=== PATIENT | male | born 1985 | race Caucasian/White ===

== ENCOUNTER 2016-09-07 00:03 | Emergency (ER) | payer OTHER ==
[2016-09-07 00:12] VITALS: TEMP 97.9
[2016-09-07] MEDS ORDERED: SODIUM CHLORIDE 0.9% 1,000 ML IV STA (00:20)
[2016-09-07] MEDS ORDERED: NALOXONE 0.4 MG/ML 1 ML VIAL IV STA (00:20)
--- NOTE | 2016-09-07 00:33 | ED ---
Overdose HPI - General Chief Complaint: Overdose Stated Complaint: Passed out/Used Heroin Time Seen by Provider: 09/07/16 00:17 Source: patient, RN notes reviewed Mode of arrival: wheelchair - History of Present Illness Initial Comments: 31-year-old male presents to the emergency department with a chief complaint of heroin overdose. The patient states that he used heroin today. Patient states that his friend told him that he passed out after this and she states to me and that they did CPR. The friend is not currently here. Patient states he is on Suboxone. Patient states he has not used heroin in a very long time. Patient states that this type does feel better sleepy. Patient denies any pain. Patient does admit to alcohol use tonight as well.Patient denies any recent fever, chills, shortness of breath, chest pain, back pain, abdominal pain, nausea vomiting, numbness or tingling, dysuria or hematuria, constipation or diarrhea, headaches or visual changes, or any other current symptoms. - Related Data Home Medications Medication Instructions Recorded Confirmed PARoxetine HCL [Paxil] 30 mg PO DAILY 07/11/15 08/03/15 B4 (Fat Burner) 1 tab PO DAILY 08/03/15 08/03/15 Previous Rx's Medication Instructions Recorded Nicotine 21Mg/24Hr Patch [Habitrol] 1 each TRANSDERM DAILY #30 patch 08/03/15 Allergies Allergy/AdvReac Type Severity Reaction Status Date / Time No Known Allergies Allergy Verified 09/07/16 00:12 Review of Systems ROS Statement: Those systems with pertinent positive or pertinent negative responses have been documented in the HPI. ROS Other: All systems not noted in ROS Statement are negative. Past Medical History Additional Past Medical History / Comment(s): hypoglycemia History of Any Multi-Drug Resistant Organisms: None Reported Additional Past Surgical History / Comment(s): LEFT WRIST, LEFT FOOT Past Psychological History: Anxiety, Depression Smoking Status: Current every day smoker Past Alcohol Use History: Occasional Past Drug Use History: Heroin - Past Family History Father Family Medical History: Hypertension Mother Family Medical History: No Reported History General Exam General appearance: alert, appears intoxicated Head exam: Present: atraumatic, normocephalic, normal inspection Eye exam: Present: normal appearance, PERRL, EOMI. Absent: scleral icterus, conjunctival injection, periorbital swelling ENT exam: Present: normal exam, mucous membranes moist Neck exam: Present: normal inspection. Absent: tenderness, meningismus, lymphadenopathy Respiratory exam: Present: normal lung sounds bilaterally. Absent: respiratory distress, wheezes, rales, rhonchi, stridor Cardiovascular Exam: Present: regular rate, normal rhythm, normal heart sounds. Absent: systolic murmur, diastolic murmur, rubs, gallop, clicks Neurological exam: Present: alert, oriented X3 Psychiatric exam: Present: normal affect, normal mood Skin exam: Present: warm, dry, intact, normal color. Absent: rash Course Vital Signs 09/07/16 09/07/16 00:08 01:56 Temperature 97.9 F Pulse Rate 88 73 Respiratory 18 16 Rate Blood Pressure 119/69 99/53 O2 Sat by Pulse 95 97 Oximetry Medical Decision Making - Medical Decision Making 30-year-old male presents emergency Department chief complaint of overdose. This time patient is reexamined and his and oriented in the room. This time patient will be discharged home. We discussed care and follow-up return parameters. We discussed all patient's questions. He stated he understood and he is in agreement with plan. He will be discharged home. - Lab Data Result diagrams: 09/07/16 00:40 09/07/16 00:40 Lab Results 09/07/16 09/07/16 Range/Units 00:40 00:40 WBC 9.4 (3.8-10.6) k/uL RBC 4.88 (4.30-5.90) m/uL Hgb 14.0 (13.0-17.5) gm/dL Hct 43.0 (39.0-53.0) % MCV 88.1 (80.0-100.0) fL MCH 28.7 (25.0-35.0) pg MCHC 32.6 (31.0-37.0) g/dL RDW 12.7 (11.5-15.5) % Plt Count 261 (150-450) k/uL Neutrophils % 53 % Lymphocytes % 38 % Monocytes % 5 % Eosinophils % 2 % Basophils % 0 % Neutrophils # 5.0 (1.3-7.7) k/uL Lymphocytes # 3.6 (1.0-4.8) k/uL Monocytes # 0.5 (0-1.0) k/uL Eosinophils # 0.2 (0-0.7) k/uL Basophils # 0.0 (0-0.2) k/uL Sodium 144 (137-145) mmol/L Potassium 3.9 (3.5-5.1) mmol/L Chloride 104 (98-107) mmol/L Carbon Dioxide 26 (22-30) mmol/L Anion Gap 14 mmol/L BUN 14 (9-20) mg/dL Creatinine 0.90 (0.66-1.25) mg/dL Est GFR (MDRD) Af Amer >60 (>60 ml/min/1.73 sqM) Est GFR (MDRD) Non-Af >60 (>60 ml/min/1.73 sqM) Glucose 131 H (74-99) mg/dL Calcium 9.2 (8.4-10.2) mg/dL Total Bilirubin 0.2 (0.2-1.3) mg/dL AST 24 (17-59) U/L ALT 28 (21-72) U/L Alkaline Phosphatase 58 (38-126) U/L Total Protein 7.5 (6.3-8.2) g/dL Albumin 4.5 (3.5-5.0) g/dL Salicylates <1.0 mg/dL Acetaminophen <10.0 ug/mL Serum Alcohol 100 mg/dL - EKG Data -: EKG Interpreted by 09/07/16 02:39 normal sinus rhythm 86 bpm, rightward axis, no atopy, no S-T depressions or elevations, Disposition Clinical Impression: Opiate overdose Disposition: HOME SELF-CARE Condition: Stable Instructions: Narcotic Abuse (ED) Additional Instructions: Please use medication as discussed. Please follow up with family doctor if symptoms have not improved over the next two days. Please return to the emergency room if your symptoms increase or worsen or for any other concerns. Referrals: Gabby Sutton MD [Primary Care Provider] - 1-2 days Time of Disposition: 03:23
[2016-09-07 01:19] LABS: Basophils % (A) 0 %; CH 29.4; CHCM 33.5; Eosinophils # (A) 0.2 k/uL (0-0.7); Eosinophils % (A) 2 %; HDW 2.38; Luc % (Auto) 2; Lymphocytes # (A) 3.6 k/uL (1.0-4.8); Lymphocytes % (A) 38 %; MCH 28.7 pg (25.0-35.0); MCHC 32.6 g/dL (31.0-37.0); MCV 88.1 fL (80.0-100.0); Mean Platelet Volume 6.4; Monocytes # (A) 0.5 k/uL (0-1.0); Monocytes % (A) 5 %; Neutrophils % (A) 53 %; RBC 4.88 m/uL (4.30-5.90); RDW 12.7 % (11.5-15.5); WBC 9.4 k/uL (3.8-10.6); WBC (Perox) 8.86
[2016-09-07 01:42] LABS: ALT 28 U/L (21-72); AST 24 U/L (17-59); Acetaminophen <10.0 ug/mL; Alkaline Phosphatase 58 U/L (38-126); Anion Gap 14 mmol/L; Blood Urea Nitrogen 14 mg/dL (9-20); Calcium 9.2 mg/dL (8.4-10.2); Carbon Dioxide 26 mmol/L (22-30); Chloride 104 mmol/L (98-107); Glucose 131 mg/dL (74-99); Non-African American GFR(MDRD) >60 (>60 ml/min/1.73 sqM); Potassium 3.9 mmol/L (3.5-5.1); Salicylate <1.0 mg/dL; Sodium 144 mmol/L (137-145); Total Bilirubin 0.2 mg/dL (0.2-1.3); Total Protein 7.5 g/dL (6.3-8.2)
[2016-09-07 01:46] LABS: Alcohol 100 mg/dL
[2016-09-07 03:33] VITALS: BP 107/77; PULSE 76; RESP 18
== END 2016-09-07 03:33 | disposition home or self-care (01) ==
LOC: EC 00:03
DX: T40.1X1A Poisoning by heroin, accidental (unintentional), initial encounter (principal); F10.129 Alcohol abuse with intoxication, unspecified; F32.9 Major depressive disorder, single episode, unspecified; F41.9 Anxiety disorder, unspecified; F17.200 Nicotine dependence, unspecified, uncomplicated; Z79.899 Other long term (current) drug therapy
CPT/HCPCS: 36415; 93005; 80053; 85025; 80306; 83520 ×2; 80320; 99284; 96374; J2310

== ENCOUNTER 2016-09-23 18:16 | Emergency (ER) | payer OTHER ==
--- NOTE | 2016-09-23 19:13 | ED ---
General Adult HPI - General Chief complaint: Recheck/Abnormal Lab/Rx Stated complaint: general Time Seen by Provider: 09/23/16 19:00 Source: patient, RN notes reviewed Mode of arrival: ambulatory Limitations: no limitations - History of Present Illness Initial comments: 31-year-old male presents to the emergency department with a chief complaint of drug abuse. Patient uses DRUGS. He sees narcotics he has used acid he has used mushrooms. Today he states that he took mushrooms and acid. Patient texted his mom during this time and asked for help so she came and got him and brought him here. He denies any suicidal or homicidal ideation. He states he is feeling much better at this time. The patient's friend states that he is doing better than he was but he still does seem mildly out of it. Patient denies any opiate abuse.Patient denies any recent fever, chills, shortness of breath, chest pain, back pain, abdominal pain, nausea vomiting, numbness or tingling, dysuria or hematuria, constipation or diarrhea, headaches or visual changes, or any other current symptoms. - Related Data Home Medications Medication Instructions Recorded Confirmed PARoxetine HCL [Paxil] 30 mg PO DAILY 07/11/15 08/03/15 B4 (Fat Burner) 1 tab PO DAILY 08/03/15 08/03/15 Previous Rx's Medication Instructions Recorded Nicotine 21Mg/24Hr Patch [Habitrol] 1 each TRANSDERM DAILY #30 patch 08/03/15 Allergies Allergy/AdvReac Type Severity Reaction Status Date / Time No Known Allergies Allergy Verified 09/23/16 18:21 Review of Systems ROS Statement: Those systems with pertinent positive or pertinent negative responses have been documented in the HPI. ROS Other: All systems not noted in ROS Statement are negative. Past Medical History Additional Past Medical History / Comment(s): hypoglycemia History of Any Multi-Drug Resistant Organisms: None Reported Additional Past Surgical History / Comment(s): LEFT WRIST, LEFT FOOT Past Psychological History: Anxiety, Depression Smoking Status: Current every day smoker Past Alcohol Use History: Occasional Past Drug Use History: Heroin - Past Family History Father Family Medical History: Hypertension Mother Family Medical History: No Reported History General Exam Limitations: no limitations General appearance: alert, in no apparent distress ENT exam: Present: normal exam, mucous membranes moist Neck exam: Present: normal inspection. Absent: tenderness, meningismus, lymphadenopathy Respiratory exam: Present: normal lung sounds bilaterally. Absent: respiratory distress, wheezes, rales, rhonchi, stridor Cardiovascular Exam: Present: regular rate, normal rhythm, normal heart sounds. Absent: systolic murmur, diastolic murmur, rubs, gallop, clicks Extremities exam: Present: normal inspection, full ROM, normal capillary refill. Absent: tenderness, pedal edema, joint swelling, calf tenderness Neurological exam: Present: alert, oriented X3 Psychiatric exam: Absent: homicidal ideation, suicidal ideation Skin exam: Present: warm, dry, intact, normal color. Absent: rash Course Vital Signs 09/23/16 18:18 Temperature 98.1 F Pulse Rate 100 Respiratory 20 Rate Blood Pressure 135/83 O2 Sat by Pulse 99 Oximetry Medical Decision Making - Medical Decision Making 31-year-old male presents for drug abuse. This time the patient does not appear to be suffering acute medical emergencies. Patient is cleared to be evaluated by psychiatry. At this time patient was evaluated by psychiatry and they are requesting discharge home. Patient continues to have no suicidal or homicidal ideation. Does contract to safety. Patient will be discharged home. We discussed follow-up return parameters. Patient's family and reviewing plan Frankrosyn 5 answered. They will be discharged. - Lab Data Lab Results 09/23/16 Range/Units 20:14 Urine Opiates Screen Not Detected (NotDetected) Ur Oxycodone Screen Not Detected (NotDetected) Urine Methadone Screen Not Detected (NotDetected) Ur Propoxyphene Screen Not Detected (NotDetected) Ur Barbiturates Screen Detected H (NotDetected) U Tricyclic Antidepress Not Detected (NotDetected) Ur Phencyclidine Scrn Not Detected (NotDetected) Ur Amphetamines Screen Detected H (NotDetected) U Methamphetamines Scrn Not Detected (NotDetected) U Benzodiazepines Scrn Not Detected (NotDetected) Urine Cocaine Screen Not Detected (NotDetected) U Marijuana (THC) Screen Detected H (NotDetected) Disposition Clinical Impression: Drug abuse Disposition: HOME SELF-CARE Condition: Stable Instructions: Polysubstance Abuse (ED) Additional Instructions: Please use medication as discussed. Please follow up with family doctor if symptoms have not improved over the next two days. Please return to the emergency room if your symptoms increase or worsen or for any other concerns. Referrals: Gabby Sutton MD [Primary Care Provider] - 1-2 days Time of Disposition: 21:27
[2016-09-23 21:41] VITALS: BP 114/55; PULSE 77; RESP 18; TEMP 98.2
== END 2016-09-23 21:40 | disposition home or self-care (01) ==
LOC: EC 18:16
DX: F11.10 Opioid abuse, uncomplicated (principal); F32.9 Major depressive disorder, single episode, unspecified; F41.9 Anxiety disorder, unspecified; Z79.899 Other long term (current) drug therapy
CPT/HCPCS: 80306; 99284

== ENCOUNTER → 2016-09-28 | Outpatient (CLI) | payer OTHER ==
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
== END | disposition home or self-care (01) ==
LOC: RADMRIMAIN 19:39
PROVIDERS: ATTEND Nurse Practitioner Acute Care
DX: R51 Headache (principal)
CPT/HCPCS: 70551

== ENCOUNTER 2017-04-26 18:53 | Emergency (ER) | payer OTHER ==
[2017-04-26 19:01] VITALS: TEMP 98
--- NOTE | 2017-04-26 19:35 | ED ---
Psych HPI - General Chief Complaint: Psychiatric Symptoms Stated Complaint: Anxiety/Mental Health Time Seen by Provider: 04/26/17 19:03 Source: patient, RN notes reviewed Mode of arrival: ambulatory - History of Present Illness Initial Comments: This a 31-year-old male presents emergency Department chief complaint of anxiety , psychiatric history. Patient states that she has been having ongoing racing thoughts but states that they've been getting worse and states that he has a history of drug abuse and is concerned that he may use again. Patient states that he was advised by his counselor to come the emergency Department. Patient states he is not suicidal or homicidal. Patient states he just cannot complete the task some days because of his thoughts. He states sometimes he just doesn' t morning of a bed because they are so bad. Patient saw his primary care physician who gave him clonidine states is only making him tired and not helping. Patient states that he has abused multiple drugs in the past but he states he has not abused any recently. Denies any alcohol abuse. - Related Data Home Medications Medication Instructions Recorded Confirmed PARoxetine HCL [Paxil] 30 mg PO DAILY 07/11/15 04/26/17 Allergies Allergy/AdvReac Type Severity Reaction Status Date / Time No Known Allergies Allergy Verified 04/26/17 19:36 Review of Systems ROS Statement: Those systems with pertinent positive or pertinent negative responses have been documented in the HPI. ROS Other: All systems not noted in ROS Statement are negative. Past Medical History Past Medical History: No Reported History Additional Past Medical History / Comment(s): hypoglycemia, previous IVDA heroin , self medicated opiates , no use since august 2016, d/c suboxone mar 2017 History of Any Multi-Drug Resistant Organisms: None Reported Additional Past Surgical History / Comment(s): LEFT WRIST, LEFT FOOT Past Psychological History: Anxiety, Depression Smoking Status: Current every day smoker Past Alcohol Use History: Occasional Past Drug Use History: None Reported, Heroin, Opiates - Past Family History Father Family Medical History: Hypertension Mother Family Medical History: No Reported History General Exam Limitations: no limitations General appearance: alert, in no apparent distress Head exam: Present: atraumatic, normocephalic, normal inspection Eye exam: Present: normal appearance, PERRL, EOMI. Absent: scleral icterus, conjunctival injection, periorbital swelling ENT exam: Present: normal exam, normal oropharynx, mucous membranes moist Neck exam: Present: normal inspection, full ROM. Absent: tenderness, meningismus, lymphadenopathy Respiratory exam: Present: normal lung sounds bilaterally. Absent: respiratory distress, wheezes, rales, rhonchi, stridor Cardiovascular Exam: Present: regular rate, normal rhythm, normal heart sounds. Absent: systolic murmur, diastolic murmur, rubs, gallop, clicks Neurological exam: Present: alert, oriented X3, CN II-XII intact Psychiatric exam: Present: normal affect, normal mood Skin exam: Present: warm, dry, intact, normal color. Absent: rash Course Vital Signs 04/26/17 18:55 Temperature 98 F Pulse Rate 89 Respiratory 20 Rate Blood Pressure 124/81 O2 Sat by Pulse 100 Oximetry Medical Decision Making - Medical Decision Making 31-year-old male present emergency department for psychiatric evaluation. Patient has a history anxiety unable to manage symptoms at this time. Patient was evaluated by EPS and talked to the psychiatrist recommended discharge and outpatient treatment. - Lab Data Lab Results 04/26/17 Range/Units 20:02 Urine Opiates Screen Not Detected (NotDetected) Ur Oxycodone Screen Not Detected (NotDetected) Urine Methadone Screen Not Detected (NotDetected) Ur Propoxyphene Screen Not Detected (NotDetected) Ur Barbiturates Screen Not Detected (NotDetected) U Tricyclic Antidepress Not Detected (NotDetected) Ur Phencyclidine Scrn Not Detected (NotDetected) Ur Amphetamines Screen Not Detected (NotDetected) U Methamphetamines Scrn Not Detected (NotDetected) U Benzodiazepines Scrn Not Detected (NotDetected) Urine Cocaine Screen Not Detected (NotDetected) U Marijuana (THC) Screen Detected H (NotDetected) Disposition Clinical Impression: Anxiety Disposition: HOME SELF-CARE Condition: Stable Instructions: Anxiety (ED) Additional Instructions: Please return to the Emergency Department if symptoms worsen or any other concerns. Referrals: Gabby Sutton MD [Primary Care Provider] - 1-2 days Time of Disposition: 22:52
[2017-04-26 20:24] LABS: Amphetamine Screen,Urine Not Detected (NotDetected); Barbiturate Screen,Urine Not Detected (NotDetected); Benzodiazepines Screen,Urine Not Detected (NotDetected); Cocaine Screen,Urine Not Detected (NotDetected); Methadone Screen, Urine Not Detected (NotDetected); Opiate Screen,Urine Not Detected (NotDetected); Oxycodone Screen, Urine Not Detected (NotDetected); Phencyclidine Screen,Urine Not Detected (NotDetected); Tricyclic Antidepressant,Urine Not Detected (NotDetected); Urn Cannabinoid Scrn Detected (NotDetected)
[2017-04-26 23:02] VITALS: BP 135/82; PULSE 77; RESP 16
== END 2017-04-26 23:01 | disposition home or self-care (01) ==
LOC: EC 18:53
DX: F41.9 Anxiety disorder, unspecified (principal); F32.9 Major depressive disorder, single episode, unspecified; F17.200 Nicotine dependence, unspecified, uncomplicated; Z79.899 Other long term (current) drug therapy
CPT/HCPCS: 80306; 82075; 99284

== ENCOUNTER 2017-06-30 01:04 | Emergency (ER) | payer OTHER ==
--- NOTE | 2017-06-30 01:35 | ED ---
Psych HPI - General Chief Complaint: Psychiatric Symptoms Stated Complaint: Med reaction Time Seen by Provider: 06/30/17 01:17 Source: patient Mode of arrival: ambulatory - History of Present Illness Initial Comments: 31-year-old male patient presents to the emergency department today for complaints of racing thoughts and difficulty focusing. Patient states that he was started on Wellbutrin approximately 6 weeks ago. States that 2 weeks ago he did have an increase from 150-300 mg. He states that since then he has been having increasing difficulty focusing. States over the last 2 days he has not gotten out of bed, he has not been productive in any way, and has not been eating or drinking. He states he is unable to focus on anything and feels very anxious related to this. States that his thoughts are in a loop and he cannot think straight. He denies any suicidal or homicidal ideation. He denies any hallucinations. States that he does use marijuana occasionally but denies any other drug use. Denies any alcohol use. States that he has an appointment with his psychiatrist on the however states he doesn't think he can make it until then. He has been seeing a counselor, she urged him to come here if his symptoms worsened. It is otherwise he is feeling well. Patient denies any recent rash, fever, chills, shortness breath, chest pain, abdominal pain, nausea , vomiting, diarrhea, constipation, back pain, numbness, tingling, dizziness, weakness, hematuria, dysuria, urinary urgency, urinary frequency, headache, visual changes, or any other complaints. - Related Data Home Medications Medication Instructions Recorded Confirmed PARoxetine HCL [Paxil] 30 mg PO DAILY 07/11/15 04/26/17 Allergies Allergy/AdvReac Type Severity Reaction Status Date / Time No Known Allergies Allergy Verified 04/26/17 19:36 Review of Systems ROS Statement: Those systems with pertinent positive or pertinent negative responses have been documented in the HPI. ROS Other: All systems not noted in ROS Statement are negative. Past Medical History Past Medical History: No Reported History Additional Past Medical History / Comment(s): hypoglycemia, previous IVDA heroin , self medicated opiates , no use since august 2016, d/c suboxone mar 2017 History of Any Multi-Drug Resistant Organisms: None Reported Past Surgical History: Orthopedic Surgery Additional Past Surgical History / Comment(s): LEFT WRIST, LEFT FOOT Past Psychological History: Anxiety, Depression Smoking Status: Current every day smoker Past Alcohol Use History: None Reported Past Drug Use History: None Reported, Marijuana - Past Family History Father Family Medical History: Hypertension Mother Family Medical History: No Reported History General Exam Limitations: no limitations General appearance: alert, in no apparent distress, other (This is a well- developed, well-nourished adult male patient in no acute distress. Vital signs upon presentation are temperature 97.0F, pulse 97, respirations 16, blood pressure 129/83, pulse ox 99% on room air.) Eye exam: Present: normal appearance, PERRL, EOMI. Absent: scleral icterus, conjunctival injection, periorbital swelling ENT exam: Present: normal exam, normal oropharynx, mucous membranes moist Respiratory exam: Present: normal lung sounds bilaterally. Absent: respiratory distress, wheezes, rales, rhonchi, stridor Cardiovascular Exam: Present: regular rate, normal rhythm, normal heart sounds. Absent: systolic murmur, diastolic murmur, rubs, gallop, clicks Neurological exam: Present: alert, oriented X3, CN II-XII intact Psychiatric exam: Present: normal affect, normal mood, anxious Skin exam: Present: warm, dry, intact, normal color. Absent: rash Course Vital Signs 06/30/17 06/30/17 01:07 03:37 Temperature 97.0 F L 99.0 F Pulse Rate 97 93 Respiratory 16 18 Rate Blood Pressure 129/83 117/78 O2 Sat by Pulse 99 95 Oximetry Medical Decision Making - Medical Decision Making 31-year-old male patient presented to the emergency department today for complaints of racing thoughts and feeling unwell since increasing his dosage of Wellbutrin 2 weeks ago. Physical examination is unremarkable. He denied any physical symptoms. He was cleared medically and evaluated by emergency psychiatric services. The EPS nurse did speak to the psychiatrist on-call who recommended either decreasing dosage or completely stopping the Wellbutrin. He also recommended increase of the Paxil 20 mg. Did discuss these changes with the patient. He agrees with this plan. States that he does have enough Paxil to increase in dosage to 20mg until he follows up with a psychiatrist. He is instructed to follow-up as soon as possible. He is educated regarding switching his medications and instructed to be alert for any increase in suicidal ideation or depression. Instructed to return here immediately for any new, worsening, or concerning symptoms. He verbalizes understanding and agrees with this plan. - Lab Data Lab Results 06/30/17 Range/Units 01:48 Urine Opiates Screen Not Detected (NotDetected) Ur Oxycodone Screen Not Detected (NotDetected) Urine Methadone Screen Not Detected (NotDetected) Ur Propoxyphene Screen Not Detected (NotDetected) Ur Barbiturates Screen Not Detected (NotDetected) U Tricyclic Antidepress Not Detected (NotDetected) Ur Phencyclidine Scrn Not Detected (NotDetected) Ur Amphetamines Screen Not Detected (NotDetected) U Methamphetamines Scrn Not Detected (NotDetected) U Benzodiazepines Scrn Detected H (NotDetected) Urine Cocaine Screen Not Detected (NotDetected) U Marijuana (THC) Screen Detected H (NotDetected) Disposition Clinical Impression: Medication reaction Disposition: HOME SELF-CARE Condition: Good Additional Instructions: Recommendation from psychiatrist is to decrease or stop her Wellbutrin. Increase Paxil to 20 mg daily. Be alert for suicidal thoughts, behaviors, or increase in depression. Follow-up with your psychiatrist as soon as possible. Return here immediately for any new, worsening, or concerning symptoms. Referrals: Gabby Sutton MD [Primary Care Provider] - 1-2 days Time of Disposition: 03:34
[2017-06-30 02:20] LABS: Amphetamine Screen,Urine Not Detected (NotDetected); Barbiturate Screen,Urine Not Detected (NotDetected); Benzodiazepines Screen,Urine Detected (NotDetected); Cocaine Screen,Urine Not Detected (NotDetected); Methadone Screen, Urine Not Detected (NotDetected); Opiate Screen,Urine Not Detected (NotDetected); Oxycodone Screen, Urine Not Detected (NotDetected); Phencyclidine Screen,Urine Not Detected (NotDetected); Tricyclic Antidepressant,Urine Not Detected (NotDetected); Urn Cannabinoid Scrn Detected (NotDetected)
[2017-06-30 03:41] VITALS: BP 117/78; PULSE 93; RESP 18; TEMP 99
== END 2017-06-30 03:41 | disposition home or self-care (01) ==
LOC: EC 01:04
DX: F41.9 Anxiety disorder, unspecified (principal); T43.295A Adverse effect of other antidepressants, initial encounter; F17.200 Nicotine dependence, unspecified, uncomplicated; Z79.899 Other long term (current) drug therapy
CPT/HCPCS: 80306; 82075; 99284

== ENCOUNTER 2017-07-30 18:05 | Emergency (ER) | payer OTHER ==
[2017-07-30 18:21] VITALS: BP 117/63; PULSE 82; RESP 16; TEMP 98.5
--- NOTE | 2017-07-30 18:47 | ED ---
General Adult HPI - General Chief complaint: Allergic Reaction Stated complaint: POSS ALLERGIC REACTION, NEW MED Time Seen by Provider: 07/30/17 18:30 Source: patient, RN notes reviewed Mode of arrival: ambulatory Limitations: no limitations - History of Present Illness Initial comments: Patient 32-year-old male who presents emergency room today with a chief complaint possible ALLERGIC reaction. He states that yesterday he noticed some hives. He states today he had some hives again and they have gone away. She is not taking any medication. No Benadryl or Pepcid. He states that he started her medication of Lexapro 11 days ago. He did take this dose this morning as well. States he talked to the physician office a prescribed and they advised him to discontinue this time. He states that the hives are gone away were present when he was at work earlier today. Patient denies any complaints or symptoms at this time. Patient denies any recent fever, chills, shortness of breath, chest pain, back pain, abdominal pain, nausea or vomiting, numbness or tingling, headaches or visual changes, or any other complaints. - Related Data Home Medications Medication Instructions Recorded Confirmed PARoxetine HCL [Paxil] 30 mg PO DAILY 07/11/15 04/26/17 Allergies Allergy/AdvReac Type Severity Reaction Status Date / Time No Known Allergies Allergy Verified 04/26/17 19:36 Review of Systems ROS Statement: Those systems with pertinent positive or pertinent negative responses have been documented in the HPI. ROS Other: All systems not noted in ROS Statement are negative. Past Medical History Past Medical History: No Reported History Additional Past Medical History / Comment(s): hypoglycemia, previous IVDA heroin , self medicated opiates , no use since august 2016, d/c suboxone mar 2017 History of Any Multi-Drug Resistant Organisms: None Reported Past Surgical History: Orthopedic Surgery Additional Past Surgical History / Comment(s): LEFT WRIST, LEFT FOOT Past Psychological History: Anxiety, Depression Smoking Status: Current every day smoker Past Alcohol Use History: None Reported Past Drug Use History: None Reported, Marijuana - Past Family History Father Family Medical History: Hypertension Mother Family Medical History: No Reported History General Exam - General Exam Comments Initial Comments: General: The patient is awake and alert, in no distress, and does not appear acutely ill. Eye: Pupils are equal, round and reactive to light, extra-ocular movements are intact. No nystagmus. There is normal conjunctiva bilaterally. No signs of icterus. Ears, nose, mouth and throat: There are moist mucous membranes and no oral lesions. Neck: The neck is supple, there is no tenderness or JVD. Cardiovascular: There is a regular rate and rhythm. No murmur, rub or gallop is appreciated. Respiratory: Lungs are clear to auscultation, respirations are non-labored, breath sounds are equal. No wheezes, stridor, rales, or rhonchi. Musculoskeletal: Normal ROM, no tenderness. Strength 5/5. Sensation intact. Pulses equal bilaterally 2+. Neurological: A&O x 3. CN II-XII intact, There are no obvious motor or sensory deficits. Coordination appears grossly intact. Speech is normal. Skin: Skin is warm and dry and no rashes or lesions are noted. Psychiatric: Cooperative, appropriate mood & affect, normal judgment. Limitations: no limitations Course Vital Signs 07/30/17 18:17 Temperature 98.5 F Pulse Rate 82 Respiratory 16 Rate Blood Pressure 117/63 O2 Sat by Pulse 99 Oximetry Medical Decision Making - Medical Decision Making Patient's vital stable here the emergency room. He denies any complaints at this time. He states the rash was red raised and itchy. He states seemed to be hives versus scar way at this time has no complaints currently. Denied any other symptoms or complaints. At this time advised patient that his symptoms return use Benadryl but to talk with the physician tomorrow about use of the Lexapro heart taking. Advised patient that he should return to the emergency room symptoms increase or worsen. Disposition Clinical Impression: Adverse drug effect Disposition: HOME SELF-CARE Condition: Good Instructions: Anaphylaxis (ED) Additional Instructions: Please use medication as discussed. Please follow-up with family doctor in the next 2 days of symptoms have not improved. Please return to emergency room if the symptoms increase or worsen or for any other concerns. Referrals: Gabby Sutton MD [Primary Care Provider] - 1-2 days Time of Disposition: 18:46
== END 2017-07-30 19:07 | disposition home or self-care (01) ==
LOC: EC 18:05
DX: L29.9 Pruritus, unspecified (principal); T50.905A Adverse effect of unspecified drugs, medicaments and biological substances, initial encounter; F41.9 Anxiety disorder, unspecified; F32.9 Major depressive disorder, single episode, unspecified; F17.200 Nicotine dependence, unspecified, uncomplicated; Z79.899 Other long term (current) drug therapy
CPT/HCPCS: 99283

== ENCOUNTER → 2017-10-02 | Outpatient (CLI) | payer OTHER ==
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
== END | disposition home or self-care (01) ==
LOC: SLEEP 15:46
PROVIDERS: ATTEND Internal Medicine Critical Care Medicine
DX: R53.83 Other fatigue (principal); S06.9X0A Unspecified intracranial injury without loss of consciousness, initial encounter; R51 Headache; F41.9 Anxiety disorder, unspecified; F32.9 Major depressive disorder, single episode, unspecified; F17.210 Nicotine dependence, cigarettes, uncomplicated; Z91.09 Other allergy status, other than to drugs and biological substances; Z79.899 Other long term (current) drug therapy
CPT/HCPCS: 99211

== ENCOUNTER 2018-01-14 10:57 | Emergency (ER) | payer OTHER ==
[2018-01-14 11:07] VITALS: TEMP 98.5
[2018-01-14 11:55] LABS: Appearance,Urine Clear (Clear); Bilirubin,Urine Negative (Negative); Blood,Urine Negative (Negative); Color,Urine Yellow; Glucose,Urine (UA) Negative (Negative); Ketones,Urine Negative (Negative); Leukocyte Esterase,Urine Negative (Negative); Nitrite,Urine Negative (Negative); PH, Urine 7.5 (5.0-8.0); Protein,Urine Negative (Negative); Specific Gravity,Urine 1.013 (1.001-1.035); Urobilinogen,Urine <2.0 mg/dL (<2.0)
--- NOTE | 2018-01-14 13:42 | US ---
EXAMINATION TYPE: US scrotum with doppler. Grayscale and color Doppler Duplex imaging performed of t hawk scrotum. DATE OF EXAM: 01/14/2018 COMPARISON: NONE CLINICAL HISTORY: Pain. Bilateral testicular pain, painful bloody ejaculation, urinary urgency, diffi culty urinating EXAM MEASUREMENTS: TESTICLES: Right Testicle: 5.0 x 2.1 x 2.9 cm Left Testicle: 4.5 x 2.5 x 3.0 cm EPIDIDYMIS HEAD: Right Epididymis: 1.0 x 0.9 x 1.4 cm Left Epididymis: 0.9 x 1.2 x 1.3 cm Doppler performed to assess for testicular vascularity; good bilateral color flow and waveforms are s een. Presence of hydroceles: small right 3.3cm Presence of varicoceles: no Comparison images towards end of study show symmetric blood flow to both testicles. IMPRESSION: No suspicious increased or diminished blood flow to either testicle.
[2018-01-14 13:50] VITALS: BP 118/74; PULSE 85; RESP 17
[2018-01-14] MEDS ORDERED: cefTRIAXone 250 MG VIAL IM STA (14:32)
[2018-01-14] MEDS ORDERED: AZITHROMYCIN 500 MG TAB PO STA (14:32)
--- NOTE | 2018-01-14 14:33 | ED ---
General Adult HPI - General Chief complaint: Recheck/Abnormal Lab/Rx Stated complaint: Blood in Urine Time Seen by Provider: 01/14/18 11:11 Source: patient, RN notes reviewed, old records reviewed Mode of arrival: ambulatory Limitations: no limitations - History of Present Illness Initial comments: This is a 32-year-old male coming in for evaluation and dysuria diarrhea hematospermia. Patient has symptoms on and off for a few weeks now. Denies any fevers. No swelling no rashes no gross. No new sexual activity or contacts. - Related Data Home Medications Medication Instructions Recorded Confirmed ALPRAZolam [Xanax] 0.25 mg PO DAILY PRN 07/30/17 01/14/18 Dextroamphetamine/Amphetamine 40 mg PO QAM 01/14/18 01/14/18 [Adderall Xr] [place]-3 Fatty Acids [[place]-3] 1,000 mg PO DAILY 01/14/18 01/14/18 PARoxetine [Paxil] 20 mg PO DAILY 01/14/18 01/14/18 Previous Rx's Medication Instructions Recorded Ciprofloxacin HCl [Cipro] 500 mg PO Q12HR #28 tablet 01/14/18 Allergies Allergy/AdvReac Type Severity Reaction Status Date / Time escitalopram [From Lexapro] Allergy Rash/Hives Verified 01/14/18 11:32 Review of Systems ROS Statement: Those systems with pertinent positive or pertinent negative responses have been documented in the HPI. ROS Other: All systems not noted in ROS Statement are negative. Past Medical History Past Medical History: No Reported History Additional Past Medical History / Comment(s): hypoglycemia, previous IVDA heroin , self medicated opiates , no use since august 2016, d/c suboxone mar 2017 History of Any Multi-Drug Resistant Organisms: None Reported Past Surgical History: Orthopedic Surgery Additional Past Surgical History / Comment(s): LEFT WRIST, LEFT FOOT Past Psychological History: Anxiety, Depression Smoking Status: Current every day smoker Past Alcohol Use History: None Reported Past Drug Use History: Marijuana - Past Family History Father Family Medical History: Hypertension Mother Family Medical History: No Reported History General Exam Limitations: no limitations General appearance: alert, in no apparent distress Head exam: Present: atraumatic, normocephalic, normal inspection Eye exam: Present: normal appearance, PERRL, EOMI. Absent: scleral icterus, conjunctival injection, periorbital swelling ENT exam: Present: normal exam, mucous membranes moist Neck exam: Present: normal inspection. Absent: tenderness, meningismus, lymphadenopathy Respiratory exam: Present: normal lung sounds bilaterally. Absent: respiratory distress, wheezes, rales, rhonchi, stridor Cardiovascular Exam: Present: regular rate, normal rhythm, normal heart sounds. Absent: systolic murmur, diastolic murmur, rubs, gallop, clicks GI/Abdominal exam: Present: soft, normal bowel sounds. Absent: distended, tenderness, guarding, rebound, rigid Extremities exam: Present: normal inspection, full ROM, normal capillary refill. Absent: tenderness, pedal edema, joint swelling, calf tenderness Back exam: Present: normal inspection Neurological exam: Present: alert, oriented X3, CN II-XII intact Psychiatric exam: Present: normal affect, normal mood Skin exam: Present: warm, dry, intact, normal color. Absent: rash Course Vital Signs 01/14/18 01/14/18 01/14/18 11:00 12:17 13:50 Temperature 98.5 F Pulse Rate 104 H 87 85 Respiratory 18 16 17 Rate Blood Pressure 120/79 121/75 118/74 O2 Sat by Pulse 100 99 100 Oximetry Medical Decision Making - Medical Decision Making 32 male the ER for evaluation. Patient has likely prostatitis, urine otherwise and ultrasound are negative. Patient can be discharged home - Lab Data Lab Results 01/14/18 01/14/18 Range/Units 11:28 11:28 Urine Color Yellow Urine Appearance Clear (Clear) Urine pH 7.5 (5.0-8.0) Ur Specific [place] 1.013 (1.001-1.035) Urine Protein Negative (Negative) Urine Glucose (UA) Negative (Negative) Urine Ketones Negative (Negative) Urine Blood Negative (Negative) Urine Nitrite Negative (Negative) Urine Bilirubin Negative (Negative) Urine Urobilinogen <2.0 (<2.0) mg/dL Ur Leukocyte Esterase Negative (Negative) Chlamydia Source Urine Chlamydia DNA (PCR) Negative (Neg,Equiv) N. gonorrhoeae Source Urine N.gonorrhoeae DNA Probe Negative (Neg,Equiv) - Radiology Data Radiology results: report reviewed (Ultrasound scrotum negative), image reviewed Disposition Clinical Impression: Prostatitis, Hematospermia Disposition: HOME SELF-CARE Condition: Good Instructions: Prostatitis (ED) Prescriptions: Ciprofloxacin HCl [Cipro] 500 mg PO Q12HR #28 tablet Is patient prescribed a controlled substance at d/c from ED?: No Referrals: Gabby Sutton MD [Primary Care Provider] - 1-2 days
[2018-01-15 15:37] LABS: C. trachomatis,PCR Negative (Neg,Equiv); Chlamydia trachomatis Source Urine; N. gonorrhoeae,PCR Negative (Neg,Equiv); Neisseria Source Urine
== END 2018-01-14 14:51 | disposition home or self-care (01) ==
LOC: EC 10:57
DX: N41.9 Inflammatory disease of prostate, unspecified (principal); R36.1 Hematospermia; F41.9 Anxiety disorder, unspecified; F32.9 Major depressive disorder, single episode, unspecified; F17.200 Nicotine dependence, unspecified, uncomplicated; Z98.890 Other specified postprocedural states; Z79.899 Other long term (current) drug therapy; Z88.8 Allergy status to other drugs, medicaments and biological substances
CPT/HCPCS: 76870; 81003; 87086; 87491; 87591; 93975; 99284

== ENCOUNTER 2018-11-21 19:21 | Observation (INO) | payer OTHER ==
--- NOTE | 2018-11-21 20:12 | ED ---
General Adult HPI - General Chief complaint: Abdominal Pain Stated complaint: Abd pain, dizziness Time Seen by Provider: 11/21/18 19:48 Source: patient, RN notes reviewed Mode of arrival: ambulatory Limitations: no limitations - History of Present Illness Initial comments: This is a 33-year-old male with a strong family history of aortic aneurysms and his dad and other family members who've just complains of dizziness which happens when he gets up from a bending over position but also left flank pain recently. He denies any fevers chills nausea vomiting sweats he does say he's had weight loss recently from 205 180 pounds last several months. He states this is similar to when his dad and other family members presented. He denies any other symptoms however no cough fevers chills nausea vomiting sweats difficulty with urination or bowel movements. He does admit she is a smoker. He is concerned about the aorta. No other modifying factors - Related Data Home Medications Medication Instructions Recorded Confirmed ALPRAZolam [Xanax] 0.25 mg PO DAILY PRN 07/30/17 11/21/18 Dextroamphetamine/Amphetamine 40 mg PO QAM 01/14/18 11/21/18 [Adderall Xr] PARoxetine [Paxil] 20 mg PO DAILY 01/14/18 11/21/18 Allergies Allergy/AdvReac Type Severity Reaction Status Date / Time escitalopram [From Lexapro] Allergy Rash/Hives Verified 11/21/18 19:54 Review of Systems ROS Statement: Those systems with pertinent positive or pertinent negative responses have been documented in the HPI. ROS Other: All systems not noted in ROS Statement are negative. Past Medical History Past Medical History: No Reported History Additional Past Medical History / Comment(s): hypoglycemia, previous IVDA heroin, self medicated opiates , no use since august 2016, d/c suboxone mar 2017 History of Any Multi-Drug Resistant Organisms: None Reported Past Surgical History: Orthopedic Surgery Additional Past Surgical History / Comment(s): LEFT WRIST, LEFT FOOT Past Psychological History: Anxiety, Depression Smoking Status: Current every day smoker Past Alcohol Use History: None Reported Past Drug Use History: Marijuana - Past Family History Father Family Medical History: Hypertension Mother Family Medical History: No Reported History General Exam - General Exam Comments Initial Comments: This is a well-developed with sciatica. Male who is awake alert oriented 3 and anxious Limitations: no limitations General appearance: alert, anxious Head exam: Present: atraumatic, normocephalic, normal inspection Eye exam: Present: normal appearance, PERRL, EOMI. Absent: scleral icterus, conjunctival injection, periorbital swelling ENT exam: Present: normal exam, mucous membranes moist Neck exam: Present: normal inspection, full ROM, other (Stridor JVD or bruits). Absent: tenderness, meningismus, lymphadenopathy Respiratory exam: Present: normal lung sounds bilaterally. Absent: respiratory distress, wheezes, rales, rhonchi, stridor Cardiovascular Exam: Present: regular rate, normal rhythm, normal heart sounds. Absent: systolic murmur, diastolic murmur, rubs, gallop, clicks GI/Abdominal exam: Present: soft, normal bowel sounds. Absent: distended, tenderness, guarding, rebound, rigid, bruit, pulsatile mass Rectal exam: Present: deferred Extremities exam: Present: normal inspection, full ROM, normal capillary refill. Absent: tenderness, pedal edema, joint swelling, calf tenderness Back exam: Present: normal inspection Neurological exam: Present: alert, oriented X3, CN II-XII intact Psychiatric exam: Present: normal affect, normal mood Skin exam: Present: warm, dry, intact, normal color. Absent: rash Course Vital Signs 11/21/18 19:42 Temperature 98.4 F Pulse Rate 83 Respiratory 20 Rate Blood Pressure 133/74 O2 Sat by Pulse 99 Oximetry EKG Findings - EKG Results: EKG: interpreted by ERMD (Sinus rhythm 82. Interval 176 QRS duration 102 QT since QTC 350/[address] T-wave configuration inferior leads this is compared with EKG dated 11/8616 which does show changes which did show evidence of right axis deviation at that time.) Procedures - Smoking Cessation Time Spent Discussing Smoking Cessation w/Patient (Minutes): 3 Patient Acknowledges Need for Cessation: Yes Medical Decision Making - Medical Decision Making I did discuss the findings with the patient and the findings of EKG changes and the atypical chest pain he will be admitted for evaluation case is discussed with Dr. Valentino's nurse practitioner Natalie - Lab Data Result diagrams: 11/21/18 20:05 11/21/18 20:05 Lab Results 08/01/19 08/01/19 08/01/19 Range/Units 20:05 20:05 20:05 WBC 7.6 (3.8-10.6) k/uL RBC 5.15 (4.30-5.90) m/uL Hgb 15.3 (13.0-17.5) gm/dL Hct 46.7 (39.0-53.0) % MCV 90.7 (80.0-100.0) fL MCH 29.6 (25.0-35.0) pg MCHC 32.7 (31.0-37.0) g/dL RDW 12.5 (11.5-15.5) % Plt Count 264 (150-450) k/uL Neutrophils % 69 % Lymphocytes % 22 % Monocytes % 6 % Eosinophils % 2 % Basophils % 0 % Neutrophils # 5.2 (1.3-7.7) k/uL Lymphocytes # 1.6 (1.0-4.8) k/uL Monocytes # 0.5 (0-1.0) k/uL Eosinophils # 0.2 (0-0.7) k/uL Basophils # 0.0 (0-0.2) k/uL D-Dimer <0.17 (<0.60) mg/L FEU Sodium 141 (137-145) mmol/L Potassium 4.3 (3.5-5.1) mmol/L Chloride 103 (98-107) mmol/L Carbon Dioxide 29 (22-30) mmol/L Anion Gap 9 mmol/L BUN 18 (9-20) mg/dL Creatinine 0.97 (0.66-1.25) mg/dL Est GFR (CKD-EPI)AfAm >90 (>60 ml/min/1.73 sqM) Est GFR (CKD-EPI)NonAf >90 (>60 ml/min/1.73 sqM) Glucose 98 (74-99) mg/dL Calcium 9.5 (8.4-10.2) mg/dL Magnesium 2.4 H (1.6-2.3) mg/dL Total Bilirubin 0.2 (0.2-1.3) mg/dL AST 17 (17-59) U/L ALT 15 L (21-72) U/L Alkaline Phosphatase 52 (38-126) U/L Creatine Kinase 23 L (55-170) U/L Troponin I (0.000-0.034) ng/mL Total Protein 7.5 (6.3-8.2) g/dL Albumin 4.5 (3.5-5.0) g/dL Lipase 75 (23-300) U/L 11/21/18 Range/Units 20:05 WBC (3.8-10.6) k/uL RBC (4.30-5.90) m/uL Hgb (13.0-17.5) gm/dL Hct (39.0-53.0) % MCV (80.0-100.0) fL MCH (25.0-35.0) pg MCHC (31.0-37.0) g/dL RDW (11.5-15.5) % Plt Count (150-450) k/uL Neutrophils % % Lymphocytes % % Monocytes % % Eosinophils % % Basophils % % Neutrophils # (1.3-7.7) k/uL Lymphocytes # (1.0-4.8) k/uL Monocytes # (0-1.0) k/uL Eosinophils # (0-0.7) k/uL Basophils # (0-0.2) k/uL D-Dimer (<0.60) mg/L FEU Sodium (137-145) mmol/L Potassium (3.5-5.1) mmol/L Chloride (98-107) mmol/L Carbon Dioxide (22-30) mmol/L Anion Gap mmol/L BUN (9-20) mg/dL Creatinine (0.66-1.25) mg/dL Est GFR (CKD-EPI)AfAm (>60 ml/min/1.73 sqM) Est GFR (CKD-EPI)NonAf (>60 ml/min/1.73 sqM) Glucose (74-99) mg/dL Calcium (8.4-10.2) mg/dL Magnesium (1.6-2.3) mg/dL Total Bilirubin (0.2-1.3) mg/dL AST (17-59) U/L ALT (21-72) U/L Alkaline Phosphatase (38-126) U/L Creatine Kinase (55-170) U/L Troponin I <0.012 (0.000-0.034) ng/mL Total Protein (6.3-8.2) g/dL Albumin (3.5-5.0) g/dL Lipase (23-300) U/L - Radiology Data Radiology results: report reviewed (I did review the imaging and report no acute findings.), image reviewed Disposition Clinical Impression: Atypical chest pain, Acute electrocardiogram changes Disposition: ADMITTED IP TO THIS HOSP Condition: Stable Referrals: Veena Og MD [Primary Care Provider] - 1-2 days
[2018-11-21 20:16] LABS: Basophils % (A) 0 %; Eosinophils # (A) 0.2 k/uL (0-0.7); Eosinophils % (A) 2 %; HCT 46.7 % (39.0-53.0); HGB 15.3 gm/dL (13.0-17.5); Lymphocytes # (A) 1.6 k/uL (1.0-4.8); Lymphocytes % (A) 22 %; MCH 29.6 pg (25.0-35.0); MCHC 32.7 g/dL (31.0-37.0); MCV 90.7 fL (80.0-100.0); Mean Platelet Volume 6.5; Monocytes # (A) 0.5 k/uL (0-1.0); Monocytes % (A) 6 %; Neutrophils # (A) 5.2 k/uL (1.3-7.7); Neutrophils % (A) 69 %; Platelet Count 264 k/uL (150-450); RBC 5.15 m/uL (4.30-5.90); RDW 12.5 % (11.5-15.5); WBC 7.6 k/uL (3.8-10.6)
[2018-11-21 20:33] LABS: ALT 15 U/L (21-72); AST 17 U/L (17-59); African American GFR (CKD) >90 (>60 ml/min/1.73 sqM); Albumin 4.5 g/dL (3.5-5.0); Alkaline Phosphatase 52 U/L (38-126); Anion Gap 9 mmol/L; Blood Urea Nitrogen 18 mg/dL (9-20); Calcium 9.5 mg/dL (8.4-10.2); Carbon Dioxide 29 mmol/L (22-30); Chloride 103 mmol/L (98-107); Creatine Kinase 23 U/L (55-170); Glucose 98 mg/dL (74-99); Magnesium 2.4 mg/dL (1.6-2.3); Potassium 4.3 mmol/L (3.5-5.1); Sodium 141 mmol/L (137-145); Total Bilirubin 0.2 mg/dL (0.2-1.3); Total Protein 7.5 g/dL (6.3-8.2)
--- NOTE | 2018-11-21 20:51 | XR ---
EXAMINATION: XR chest 2V DATE AND TIME: 11/21/2018 8:22 PM CLINICAL INDICATION: PHH; cough TECHNIQUE: Departmental protocol COMPARISON: 08/03/2015 FINDINGS: The lungs are clear. The pleural spaces are negative. The cardiac silhouette is not enlarged. The remainder of the mediastinal silhouette is unremarkable. The skeletal structures and soft tissues are negative for acute findings. IMPRESSION: NO ACUTE PROCESS.
--- NOTE | 2018-11-21 20:53 | XR ---
EXAMINATION TYPE: XR KUB 2 views DATE OF EXAM: 11/21/2018 COMPARISON: NONE HISTORY: Dizziness, abdominal pain, weight loss TECHNIQUE: 2 views FINDINGS: Sliced lung bases and pleural spaces are negative. No evidence of pneumoperitoneum or pneumatosis. Negative for bowel obstruction. No acute skeletal or soft tissue findings are evident. IMPRESSION: Negative examination.
[2018-11-21] MEDS ORDERED: NITROGLYCERIN SL TABS 0.4 MG TAB SUBLINGUAL PRN (21:01)
--- NOTE | 2018-11-21 21:04 | ED ---
Medical Decision Making - Lab Data Result diagrams: 11/21/18 20:05 11/21/18 20:05 Lab Results 11/21/18 11/21/18 11/21/18 Range/Units 20:05 20:05 20:05 WBC 7.6 (3.8-10.6) k/uL RBC 5.15 (4.30-5.90) m/uL Hgb 15.3 (13.0-17.5) gm/dL Hct 46.7 (39.0-53.0) % MCV 90.7 (80.0-100.0) fL MCH 29.6 (25.0-35.0) pg MCHC 32.7 (31.0-37.0) g/dL RDW 12.5 (11.5-15.5) % Plt Count 264 (150-450) k/uL Neutrophils % 69 % Lymphocytes % 22 % Monocytes % 6 % Eosinophils % 2 % Basophils % 0 % Neutrophils # 5.2 (1.3-7.7) k/uL Lymphocytes # 1.6 (1.0-4.8) k/uL Monocytes # 0.5 (0-1.0) k/uL Eosinophils # 0.2 (0-0.7) k/uL Basophils # 0.0 (0-0.2) k/uL D-Dimer <0.17 (<0.60) mg/L FEU Sodium 141 (137-145) mmol/L Potassium 4.3 (3.5-5.1) mmol/L Chloride 103 (98-107) mmol/L Carbon Dioxide 29 (22-30) mmol/L Anion Gap 9 mmol/L BUN 18 (9-20) mg/dL Creatinine 0.97 (0.66-1.25) mg/dL Est GFR (CKD-EPI)AfAm >90 (>60 ml/min/1.73 sqM) Est GFR (CKD-EPI)NonAf >90 (>60 ml/min/1.73 sqM) Glucose 98 (74-99) mg/dL Calcium 9.5 (8.4-10.2) mg/dL Magnesium 2.4 H (1.6-2.3) mg/dL Total Bilirubin 0.2 (0.2-1.3) mg/dL AST 17 (17-59) U/L ALT 15 L (21-72) U/L Alkaline Phosphatase 52 (38-126) U/L Creatine Kinase 23 L (55-170) U/L Troponin I (0.000-0.034) ng/mL Total Protein 7.5 (6.3-8.2) g/dL Albumin 4.5 (3.5-5.0) g/dL Lipase 75 (23-300) U/L 11/21/18 Range/Units 20:05 WBC (3.8-10.6) k/uL RBC (4.30-5.90) m/uL Hgb (13.0-17.5) gm/dL Hct (39.0-53.0) % MCV (80.0-100.0) fL MCH (25.0-35.0) pg MCHC (31.0-37.0) g/dL RDW (11.5-15.5) % Plt Count (150-450) k/uL Neutrophils % % Lymphocytes % % Monocytes % % Eosinophils % % Basophils % % Neutrophils # (1.3-7.7) k/uL Lymphocytes # (1.0-4.8) k/uL Monocytes # (0-1.0) k/uL Eosinophils # (0-0.7) k/uL Basophils # (0-0.2) k/uL D-Dimer (<0.60) mg/L FEU Sodium (137-145) mmol/L Potassium (3.5-5.1) mmol/L Chloride (98-107) mmol/L Carbon Dioxide (22-30) mmol/L Anion Gap mmol/L BUN (9-20) mg/dL Creatinine (0.66-1.25) mg/dL Est GFR (CKD-EPI)AfAm (>60 ml/min/1.73 sqM) Est GFR (CKD-EPI)NonAf (>60 ml/min/1.73 sqM) Glucose (74-99) mg/dL Calcium (8.4-10.2) mg/dL Magnesium (1.6-2.3) mg/dL Total Bilirubin (0.2-1.3) mg/dL AST (17-59) U/L ALT (21-72) U/L Alkaline Phosphatase (38-126) U/L Creatine Kinase (55-170) U/L Troponin I <0.012 (0.000-0.034) ng/mL Total Protein (6.3-8.2) g/dL Albumin (3.5-5.0) g/dL Lipase (23-300) U/L Disposition Clinical Impression: Atypical chest pain, Acute electrocardiogram changes, Smoking Disposition: ADMITTED IP TO THIS HOSP Condition: Stable Referrals: Veena Og MD [Primary Care Provider] - 1-2 days
[2018-11-21] MEDS: ALPRAZolam 0.25 MG TAB PO PRN (22:53)
[2018-11-22] MEDS ORDERED: PARoxetine 20 MG TAB PO SCH (09:00)
[2018-11-22] MEDS ORDERED: Dextroamphetamine/Amphetamine [Adderall Xr] PO SCH (09:00)
[2018-11-22] MEDS ORDERED: ASPIRIN 325 MG TAB PO SCH (09:00)
--- NOTE | 2018-11-22 09:00 | US ---
EXAMINATION TYPE: US duplex aorta DATE OF EXAM: 11/22/2018 COMPARISON: NONE CLINICAL HISTORY: assess aorta. family hx of AAA, no htn, pt states having heart palpatations EXAM MEASUREMENTS: Abdominal Aorta: Proximal: 2.1 x 1.9 cm Mid: 1.8 x 2.1 cm Distal: 1.7 x 1.7 cm Bifurcation: right- 0.9 x 0.9 cm left- 0.9 x 0.9 cm No AAA visualized IMPRESSION: No sonographic evidence of abdominal aortic aneurysm and the visualized portions of the a bdominal aorta.
[2018-11-22 09:06] VITALS: RESP 16
--- NOTE | 2018-11-22 10:12 | P.CRDCN ---
History of Present Illness History of present illness: This is a pleasant 33-year-old male past medical history significant for previous heroin and opiate use and has chronic nicotine dependence. He denies history of coronary artery disease, hypertension, dyslipidemia or diabetes mellitus. We have been asked to see him in consultation for chest pain. He states for the last few months he has been experiencing light headedness when he changes positions. Specifically when he bends down to do something at work and then stands up quickly. He has never actually passed out. The light headed feeling subsides after a few seconds. This not associated with chest pain, shortness of breath, palpitations, nausea, vomiting or diaphoresis. However, yesterday he felt intermittent palpitations throughout the day. He was not dizzy or short of breath when he felt the palpitations. He describes it as it felt like his heart was stopping. He became concerned because his father and uncles have all had abdominal aortic aneurysm and felt their only symptom was dizziness. He is seen and examined resting comfortably in bed in no acute distress. He has had no dizziness since arriving at the hospital. EKG reveals sinus mechanism heart rate 82, left axis deviation and T-wave inversions in the inferior leads. These are new compared to previous EKG from 2017. Chest x-ray is negative for an acute cardiopulmonary process. Abdominal xray negative for an acute process. Abdominal ultrasound reveals no evidence of abdominal aortic aneurysm. Laboratory data reviewed, WBC 7.6, hgb 15.3, plt 264, d-dimer less than 0.17, sodium 141, potassium 4.3, creatinine 0.97, cardiac enzymes negative x3, LDL 77, TSH 3.45. He currently takes no daily cardiac medications. He does take adderall daily. At the time of my exam: CONSTITUTIONAL: Denies fever. Denies chills. EYES: Denies blurred vision. Denies vision changes. Denies eye pain. EARS, NOSE, MOUTH & THROAT: Denies headache. Denies sore throat. Denies ear pain. CARDIOVASCULAR: Denies chest pain. Denies shortness of breath. Denies orthopnea. Denies PND. Denies palpitations. RESPIRATORY: Denies cough. GASTROINTESTINAL: Denies abdominal pain. Denies diarrhea. Denies constipation. Denies nausea. Denies vomiting. MUSCULOSKELETAL: Denies myalgias. INTEGUMENTARY: Denies pruitis. Denies rash. NEUROLOGIC: Denies numbness. Denies tingling. Denies weakness. PSYCHIATRIC: Denies anxiety. Denies depression. ENDOCRINE: Denies fatigue. Denies weight change. Denies polydipsia. Denies polyurina. GENITOURINARY: Denies burning, hematuria or urgency with micturation. HEMATOLOGIC: Denies history of anemia. Denies bleeding. Blood pressure 107/69 heart rate 57 afebrile maintaining oxygen saturation on room air GENERAL: This is a 33-year-old male in no apparent distress at the time of my examination. HEENT: Head is atraumatic, normocephalic. Pupils are equal, round. Sclerae anicteric. Conjunctivae are clear. Mucous membranes of the mouth are moist. Neck is supple. There is no jugular venous distention. No carotid bruit is heard. LUNGS: Clear to auscultation no wheezes, rales or rhonchi. No chest wall tenderness is noted on palpation or with deep breathing. HEART: Regular rate and rhythm without murmurs, rubs or gallops. S1 and S2 heard. ABDOMEN: Soft, nontender. Bowel sounds are heard. No organomegaly noted. EXTREMITIES: No evidence of peripheral edema and no calf tenderness noted. VASCULAR: Radial and dorsalis pedis pulses palpated, no evidence of clubbing. NEUROLOGIC: Patient is awake, alert and oriented x3. ASSESSMENT Positional pre-syncope Palpitations Chronic nicotine dependence Former IV drug use, ongoing marijuana use PLAN An acute coronary event has been ruled out. Ultrasound of the aorta ordered and is unremarkable. Orthostatic vital signs obtained, no evidence to suggest orthostatic hypotension. Obtain 2D echocardiogram and doppler study to assess cardiac structure and function. Perform stress echocardiogram to assess for stress induced ischemic changes or exercise induced arrhythmia. Recommend discontinuation of adderall, as this may be causing his palpitations. Smoking cessation recommended. If diagnostic testing is normal he may be discharged from a cardiac perspective. Thank you kindly for this consultation. Nurse Practitioner note has been reviewed, I agree with a documented findings and plan of care. Patient was seen and examined. 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, usually used pills self medicated opiates , no use since august 2016, d/c suboxone mar 2017 History of Any Multi-Drug Resistant Organisms: None Reported Past Surgical History: Orthopedic Surgery Additional Past Surgical History / Comment(s): LEFT WRIST, LEFT FOOT Past Anesthesia/Blood Transfusion Reactions: No Reported Reaction Past Psychological History: Anxiety, Depression Smoking Status: Current every day smoker Past Alcohol Use History: None Reported Past Drug Use History: Marijuana - Past Family History Father Family Medical History: Hypertension Mother Family Medical History: No Reported History Medications and Allergies Home Medications Medication Instructions Recorded Confirmed Type ALPRAZolam [Xanax] 0.25 mg PO TID PRN 07/30/17 11/21/18 History Dextroamphetamine/Amphetamine 40 mg PO QAM 01/14/18 11/21/18 History [Adderall Xr] PARoxetine [Paxil] 20 mg PO DAILY 01/14/18 11/21/18 History Allergies Allergy/AdvReac Type Severity Reaction Status Date / Time escitalopram [From Lexapro] Allergy Rash/Hives Verified 11/21/18 22:21 Physical Exam Vitals: Vital Signs Temp Pulse Pulse Resp BP BP Pulse Ox 11/22/18 04:00 98.3 F 57 L 18 108/73 98 11/22/18 00:00 98.2 F 77 18 118/79 100 11/21/18 21:47 98.0 F 61 18 121/72 100 11/21/18 19:42 98.4 F 83 20 133/74 99 Intake and Output 11/21/18 11/22/18 11/22/18 22:59 06:59 14:59 Other: Voiding Method Toilet Toilet # Voids 2 Weight 81.873 kg Results 11/21/18 20:05 11/21/18 20:05 Cardiac Enzymes 11/21/18 11/21/18 11/22/18 Range/Units 20:05 20:05 02:52 AST 17 (17-59) U/L Troponin I <0.012 <0.012 (0.000-0.034) ng/mL CBC 11/21/18 Range/Units 20:05 WBC 7.6 (3.8-10.6) k/uL RBC 5.15 (4.30-5.90) m/uL Hgb 15.3 (13.0-17.5) gm/dL Hct 46.7 (39.0-53.0) % Plt Count 264 (150-450) k/uL Comprehensive Metabolic Panel 11/21/18 Range/Units 20:05 Sodium 141 (137-145) mmol/L Potassium 4.3 (3.5-5.1) mmol/L Chloride 103 (98-107) mmol/L Carbon Dioxide 29 (22-30) mmol/L BUN 18 (9-20) mg/dL Creatinine 0.97 (0.66-1.25) mg/dL Glucose 98 (74-99) mg/dL Calcium 9.5 (8.4-10.2) mg/dL AST 17 (17-59) U/L ALT 15 L (21-72) U/L Alkaline Phosphatase 52 (38-126) U/L Total Protein 7.5 (6.3-8.2) g/dL Albumin 4.5 (3.5-5.0) g/dL Current Medications Generic Name Dose Route Start Last Admin Trade Name Freq PRN Reason Stop Dose Admin Alprazolam 0.25 mg 11/21/18 21:03 11/21/18 22:53 Xanax PO 0.25 mg DAILY PRN Administration Anxiety Aspirin 325 mg 11/22/18 09:00 Aspirin PO DAILY ISMAEL Nitroglycerin 0.4 mg 11/21/18 21:01 Nitrostat SUBLINGUAL Q5M PRN Chest Pain Dextroamphetamine/ 40 mg 11/22/18 09:00 Amphetamine [ PO Adderall Xr] QAM ISMAEL Paroxetine HCl 20 mg 11/22/18 09:00 Paxil PO DAILY ISMAEL Intake and Output 11/21/18 11/22/18 11/22/18 22:59 06:59 14:59 Other: Voiding Method Toilet Toilet # Voids 2 Weight 81.873 kg 11/21/18 20:05 11/21/18 20:05
[2018-11-22] MEDS: ALPRAZolam 0.25 MG TAB PO PRN (11:05)
--- NOTE | 2018-11-22 12:00 | ECHOF ---
Referral Reason:palpitaions presyncope MEASUREMENTS -------- HEIGHT: 195.6 cm WEIGHT: 81.6 kg BP: 108/73 RVIDd: 3.2 cm (< 3.3) IVSd: 1.3 cm (0.6 - 1.1) LVIDd: 4.1 cm (3.9 - 5.3) LVPWd: 1.1 cm (0.6 - 1.1) IVSs: 1.9 cm LVIDs: 3.1 cm LVPWs: 1.4 cm LA Diam: 3.7 cm (2.7 - 3.8) LAESV Index (A-L): 27.48 ml/m Ao Diam: 3.8 cm (2.0 - 3.7) AV Cusp: 2.8 cm (1.5 - 2.6) MV EXCURSION: 22.473 mm (> 18.000) MV EF SLOPE: 103 mm/s (70 - 150) EPSS: 0.9 cm MV E River: 0.62 m/s MV DecT: 263 ms MV A River: 0.57 m/s MV E/A Ratio: 1.10 RAP: 5.00 mmHg RVSP: 21.00 mmHg FINDINGS -------- Sinus rhythm. This was a technically good study. The left ventricular size is normal. There is mild concentric left ventricular hypertrophy. Overa ll left ventricular systolic function is normal with, an EF between 55 - 60 %. The right ventricle is normal in size. Normal LA size by volume 22+/-6 ml/m2. The right atrium is normal in size. Interatrial and interventricular septum intact. The aortic valve is trileaflet and appears structurally normal. Trace amount of aortic regurgitatio n. The mitral valve is normal. There is trace mitral regurgitation. Mild tricuspid regurgitation present. Right ventricular systolic pressure is normal at < 35 mmHg. Trace/mild (physiologic) pulmonic regurgitation. The aortic root is dilated measuring 3.8cm. Normal inferior vena cava with normal inspiratory collapse consistent with estimated right atrial pre ssure of 5 mmHg. There is no pericardial effusion. CONCLUSIONS -------- 1. Sinus rhythm. 2. This was a technically good study. 3. The left ventricular size is normal. 4. There is mild concentric left ventricular hypertrophy. 5. The right ventricle is normal in size. 6. Normal LA size by volume 22+/-6 ml/m2. 7. The right atrium is normal in size. 8. Interatrial and interventricular septum intact. 9. The aortic valve is trileaflet and appears structurally normal. 10. Trace amount of aortic regurgitation. 11. The mitral valve is normal. 12. There is trace mitral regurgitation. 13. Mild tricuspid regurgitation present. 14. Right ventricular systolic pressure is normal at < 35 mmHg. 15. Trace/mild (physiologic) pulmonic regurgitation. 16. The aortic root is dilated measuring 3.8cm. 17. Normal inferior vena cava with normal inspiratory collapse consistent with estimated right atrial pressure of 5 mmHg. 18. There is no pericardial effusion. STREET SWEEPER: Yvonne Man RDCS
[2018-11-22 12:15] VITALS: BP 107/73; PULSE 88; TEMP 98
[2018-11-22 13:14] VITALS: BMI 21.4
--- NOTE | 2018-11-22 13:59 | P.HPIM ---
History of Present Illness that if-year-old the male with history of heroin use opiate use in the past and nicotine dependence came in with complaints of palpitations mainly with some mild chest pressure lightheadedness. Patient doesn't take Adderall on regular basis but did take this medication yesterday denied any excess coffee or any of the energy drinks. Patient denied any fever chills nausea vomiting echocardiac exam was opted which did not show any significant abnormality at the iliac CAT scan was done not sure but Y but the it's negative for any aneurysm. Patient's d-dimer is negative. Patient denied any fever chills denied and diaphoresis. Patient was evaluated by cardiology. Patient is feeling better now will be discharged will not discontinue his Adderall l the asked patient to avoid it if is not requiring it. Review of Systems REVIEW OF SYSTEMS: CONSTITUTIONAL: No fever, no malaise, no fatigue. HEENT: No recent visual problems or hearing problems. Denied any sore throat. CARDIOVASCULAR: No orthopnea, PND, no syncope. PULMONARY: No shortness of breath, no cough, no hemoptysis. GASTROINTESTINAL: No diarrhea, no nausea, no vomiting, no abdominal pain. NEUROLOGICAL: No headaches, no weakness, no numbness. HEMATOLOGICAL: Denies any bleeding or petechiae. GENITOURINARY: Denies any burning micturition, frequency, or urgency. MUSCULOSKELETAL/RHEUMATOLOGICAL: Denies any joint pain, swelling, or any muscle pain. ENDOCRINE: Denies any polyuria or polydipsia. The rest of the 14-point review of systems is negative. 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, usually used pills self medicated opiates , no use since august 2016, d/c suboxone mar 2017 History of Any Multi-Drug Resistant Organisms: None Reported Past Surgical History: Orthopedic Surgery Additional Past Surgical History / Comment(s): LEFT WRIST, LEFT FOOT Past Anesthesia/Blood Transfusion Reactions: No Reported Reaction Past Psychological History: Anxiety, Depression Smoking Status: Current every day smoker Past Alcohol Use History: None Reported Past Drug Use History: Marijuana - Past Family History Father Family Medical History: Hypertension Mother Family Medical History: No Reported History Medications and Allergies Home Medications Medication Instructions Recorded Confirmed Type ALPRAZolam [Xanax] 0.25 mg PO TID PRN 07/30/17 11/21/18 History Dextroamphetamine/Amphetamine 40 mg PO QAM 01/14/18 11/21/18 History [Adderall Xr] PARoxetine [Paxil] 20 mg PO DAILY 01/14/18 11/21/18 History Allergies Allergy/AdvReac Type Severity Reaction Status Date / Time escitalopram [From Lexapro] Allergy Rash/Hives Verified 11/21/18 22:21 Physical Exam Vitals: Vital Signs Temp Pulse Pulse Pulse Pulse Pulse Resp 11/22/18 12:00 98.0 F 88 16 11/22/18 08:00 97.8 F 76 71 57 L 16 11/22/18 04:00 98.3 F 57 L 18 11/22/18 00:00 98.2 F 77 18 11/21/18 21:47 98.0 F 61 18 11/21/18 19:42 98.4 F 83 20 BP BP BP BP BP Pulse Ox 11/22/18 12:00 107/73 98 11/22/18 08:00 103/68 114/79 107/69 99 11/22/18 04:00 108/73 98 11/22/18 00:00 118/79 100 11/21/18 21:47 121/72 100 11/21/18 19:42 133/74 99 Intake and Output 11/21/18 11/22/18 11/22/18 22:59 06:59 14:59 Other: Voiding Method Toilet Toilet Toilet # Voids 2 Weight 81.873 kg 81.873 kg PHYSICAL EXAMINATION: GENERAL: The patient is alert and oriented x3, not in any acute distress. Well developed, well nourished. HEENT: Pupils are round and equally reacting to light. EOMI. No scleral icterus. No conjunctival pallor. Normocephalic, atraumatic. No pharyngeal erythema. No thyromegaly. CARDIOVASCULAR: S1 and S2 present. No murmurs, rubs, or gallops. PULMONARY: Chest is clear to auscultation, no wheezing or crackles. ABDOMEN: Soft, nontender, nondistended, normoactive bowel sounds. No palpable organomegaly. MUSCULOSKELETAL: No joint swelling or deformity. EXTREMITIES: No cyanosis, clubbing, or pedal edema. NEUROLOGICAL: Gross neurological examination did not reveal any focal deficits. SKIN: No rashes. Results CBC & Chem 7: 11/21/18 20:05 11/21/18 20:05 Labs: Abnormal Lab Results - Last 24 Hours (Table) 11/21/18 Range/Units 20:05 Magnesium 2.4 H (1.6-2.3) mg/dL ALT 15 L (21-72) U/L Creatine Kinase 23 L (55-170) U/L Thrombosis Risk Factor Assmnt - Choose All That Apply Any of the Below Risk Factors Present?: No Other Risk Factors: No Other congenital or acquired thrombophilia - If yes, enter type in comment: No Thrombosis Risk Factor Assessment Level: Very Low Risk Assessment and Plan Plan: Palpitations: May be related to lateral rule out a concurrent syndromes echocardiogram did not show any significant abnormality patient will be discharged today. -Anxiety disorder -Nicotine use: Counseling was provided -History of IV drug use may need a hepatitis panel as an outpatient if it's not already done in in the PCPs office
--- NOTE | 2018-11-22 14:00 | P.DS ---
Providers Date of admission: 11/21/18 21:01 Attending physician: Prashant Valentino Consults: 11/21/18 21:01 Consult Physician Urgent Consulting Provider: Julian Mendieta Consult Reason/Comments: EKG changes, atypical chest pain Do you want consulting provider notified?: Yes Primary care physician: Veena Og [facility] Course: Please refer to my HPI Patient Condition at Discharge: Stable Plan - Discharge Summary Discharge Rx Participant: No New Discharge Prescriptions: Continue ALPRAZolam [Xanax] 0.25 mg PO TID PRN PRN Reason: Anxiety PARoxetine [Paxil] 20 mg PO DAILY Dextroamphetamine/Amphetamine [Adderall Xr] 40 mg PO QAM Discharge Medication List ALPRAZolam [Xanax] 0.25 mg PO TID PRN 07/30/17 [History] Dextroamphetamine/Amphetamine [Adderall Xr] 40 mg PO QAM 01/14/18 [History] PARoxetine [Paxil] 20 mg PO DAILY 01/14/18 [History] Follow up Appointment(s)/Referral(s): Veena Og MD [Primary Care Provider] - 3 Days Discharge Disposition: HOME SELF-CARE
--- NOTE | 2018-11-25 13:18 | ECHOS ---
STRESS ECHOCARDIOGRAM DATE OF SERVICE: 11/22/2018 INDICATIONS: EKG changes, chest pain. MEDICATIONS: BASELINE HEART RATE: 65 BASELINE BLOOD PRESSURE: 114/77 MAXIMUM HEART RATE: 170 MAXIMUM BLOOD PRESSURE: 175/63 85% MPHR: 157 100% MPHR: 185 METS: 13.5 MAXIMUM STAGE REACHED: IV TOTAL EXERCISE TIME: 13-1/2 minutes. CLINICAL INFORMATION: Baseline EKG revealed normal sinus rhythm without significant ST-T changes. Patient walked on a standard Baron protocol for 13-1/2 minutes achieved a maximum heart rate of 170 beats per minute. Developed fatigue, shortness of breath but did not have angina or arrhythmia. EKG did not reveal any ST-segment changes to suggest ischemia. Rare PVC was noted. By EKG criteria, this is a negative stress test with excellent exercise capacity. Baseline echo images revealed normal wall motion wall thickening of all segments. At peak exercise there was good augmentation of left ventricular wall motion and wall thickening of all segments suggesting that there is no evidence of stress-induced ischemia on this study. FINAL IMPRESSION: 1. Excellent exercise capacity. Negative stress test by EKG criteria. 2. Normal stress echocardiogram. MMODL / IJN: [id number] /
== END 2018-11-22 13:27 | disposition home or self-care (01) ==
LOC: EC 19:21 → 1SOBS 21:01
PROVIDERS: ADMIT Hospitalist; ATTEND Hospitalist
DX: R07.89 Other chest pain (principal); R55 Syncope and collapse; R42 Dizziness and giddiness; F17.200 Nicotine dependence, unspecified, uncomplicated; R00.2 Palpitations; F32.9 Major depressive disorder, single episode, unspecified; F41.9 Anxiety disorder, unspecified; Z88.8 Allergy status to other drugs, medicaments and biological substances; Z79.899 Other long term (current) drug therapy; Z98.890 Other specified postprocedural states; Z82.49 Family history of ischemic heart disease and other diseases of the circulatory system
CPT/HCPCS: 99285; 36415; 93005; 93306; 93351; 85379; 80061; 80053; 84443; 82550; 83690; 83735; 84484 ×2; 85025; 71046; 74018; 93979; G0378 ×2

== ENCOUNTER 2021-01-04 12:35 | Emergency (ER) | payer OTHER ==
[2021-01-04 13:40] VITALS: RESP 20; TEMP 98.2
--- NOTE | 2021-01-04 14:19 | ED ---
General Adult HPI - General Source: patient, RN notes reviewed Mode of arrival: ambulatory Limitations: no limitations <Leland Delgado - Last Filed: 01/04/21 14:17> <Duc Hilton - Last Filed: 01/04/21 16:37> - General Chief complaint: Anxiety Stated complaint: depression Time Seen by Provider: 01/04/21 13:51 - History of Present Illness Initial comments: 35-year-old male presents emergency Department chief complaint of anxiety, severe depression. Patient states that his depression has been getting worse wa s recently placed on Prozac. Patient states that he was on Paxil 7 years and that had a reaction is on multiple medications stents placed on by PCP does not have a current psychiatrist. Patient denies any homicidal ideation. Patient states he has no current suicidal ideation but states that he is severely depressed were is difficult to function. Patient denies any illicit drug use no alcohol abuse. (Leland Delgado) - Related Data Home Medications Medication Instructions Recorded Confirmed ALPRAZolam [Xanax] 0.25 mg PO TID PRN 07/30/17 11/21/18 Dextroamphetamine/Amphetamine 40 mg PO QAM 01/14/18 11/21/18 [Adderall Xr] PARoxetine [Paxil] 20 mg PO DAILY 01/14/18 11/21/18 Allergies Allergy/AdvReac Type Severity Reaction Status Date / Time escitalopram [From Lexapro] Allergy Rash/Hives Verified 01/04/21 13:40 Review of Systems ROS Other: All systems not noted in ROS Statement are negative. <Leland Delgado - Last Filed: 01/04/21 14:17> ROS Other: All systems not noted in ROS Statement are negative. <Duc Hilton - Last Filed: 01/04/21 16:37> ROS Statement: Those systems with pertinent positive or pertinent negative responses have been documented in the HPI. 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, usually used pills self medicated opiates , no use since august 2016, d/c suboxone mar 2017 History of Any Multi-Drug Resistant Organisms: None Reported Past Surgical History: Orthopedic Surgery Additional Past Surgical History / Comment(s): LEFT WRIST, LEFT FOOT Past Anesthesia/Blood Transfusion Reactions: No Reported Reaction Past Psychological History: Anxiety, Depression Smoking Status: Current every day smoker Past Alcohol Use History: None Reported Past Drug Use History: Marijuana - Past Family History Father Family Medical History: Hypertension Mother Family Medical History: No Reported History <Leland Delgado - Last Filed: 01/04/21 14:17> General Exam Limitations: no limitations General appearance: alert, in no apparent distress Head exam: Present: atraumatic, normocephalic, normal inspection Eye exam: Present: normal appearance, PERRL, EOMI. Absent: scleral icterus, conjunctival injection, periorbital swelling ENT exam: Present: normal exam, normal oropharynx, mucous membranes moist Neck exam: Present: normal inspection, full ROM. Absent: tenderness, men ingismus, lymphadenopathy Respiratory exam: Present: normal lung sounds bilaterally. Absent: respiratory distress, wheezes, rales, rhonchi, stridor Cardiovascular Exam: Present: regular rate, normal rhythm, normal heart sounds. Absent: systolic murmur, diastolic murmur, rubs, gallop, clicks Neurological exam: Present: alert, oriented X3, CN II-XII intact Psychiatric exam: Present: depressed Skin exam: Present: warm, dry, intact, normal color. Absent: rash <Leland Delgado M - Last Filed: 01/04/21 14:17> Course Vital Signs 01/04/21 13:35 Temperature 98.2 F Pulse Rate 67 Respiratory 20 Rate Blood Pressure 104/75 O2 Sat by Pulse 97 Oximetry Medical Decision Making <Duc Hilton - Last Filed: 01/04/21 16:37> - Medical Decision Making EPS evaluated the patient and determined the patient could go home safely. Patient agreed that the he would be safe. Patient has appropriate follow-up. (Duc Hilton) - Lab Data Lab Results 01/04/21 Range/Units 14:17 Urine Opiates Screen Not Detected (NotDetected) Ur Oxycodone Screen Not Detected (NotDetected) Urine Methadone Screen Not Detected (NotDetected) Ur Propoxyphene Screen Not Detected (NotDetected) Ur Barbiturates Screen Not Detected (NotDetected) U Tricyclic Antidepress Not Detected (NotDetected) Ur Phencyclidine Scrn Not Detected (NotDetected) Ur Amphetamines Screen Detected H (NotDetected) U Methamphetamines Scrn Not Detected (NotDetected) U Benzodiazepines Scrn Detected H (NotDetected) Urine Cocaine Screen Not Detected (NotDetected) U Marijuana (THC) Screen Not Detected (NotDetected) Disposition <Leland Delgado - Last Filed: 01/04/21 14:17> Is patient prescribed a controlled substance at d/c from ED?: No Time of Disposition: 16:37 <Duc Hilton - Last Filed: 01/04/21 16:37> Clinical Impression: Acute anxiety, Depression Disposition: HOME SELF-CARE Instructions (If sedation given, give patient instructions): Generalized Anxiety Disorder (ED) Referrals: Veena Og MD [Primary Care Provider] - 1-2 days
[2021-01-04 14:54] LABS: Amphetamine Screen,Urine Detected (NotDetected); Barbiturate Screen,Urine Not Detected (NotDetected); Benzodiazepines Screen,Urine Detected (NotDetected); Cocaine Screen,Urine Not Detected (NotDetected); Methadone Screen, Urine Not Detected (NotDetected); Opiate Screen,Urine Not Detected (NotDetected); Oxycodone Screen, Urine Not Detected (NotDetected); Phencyclidine Screen,Urine Not Detected (NotDetected); Tricyclic Antidepressant,Urine Not Detected (NotDetected); Urn Cannabinoid Scrn Not Detected (NotDetected)
[2021-01-04 16:52] VITALS: BP 103/71; PULSE 64
== END 2021-01-04 16:51 | disposition home or self-care (01) ==
LOC: EC 12:35
DX: F41.9 Anxiety disorder, unspecified (principal); F32.9 Major depressive disorder, single episode, unspecified; F17.200 Nicotine dependence, unspecified, uncomplicated; F12.90 Cannabis use, unspecified, uncomplicated
CPT/HCPCS: 80306; 82075; 99283